=== PATIENT | male | born 1975 | race African-American/Black ===

== ENCOUNTER 2017-04-29 05:43 | Emergency (ER) | payer SELFPAY ==
[~2017-04-29] VITALS: Ht 180.3 cm; Wt 117.2 kg
[2017-04-29 06:48] LABS: HEMATOCRIT 44.3 % (38.0-50.0); HEMOGLOBIN 14.5 G/DL (12.5-16.6); MCHC 32.7 G/DL (30.0-36.0); MCV 82.3 FL (86-99); PLATELET COUNT 161 K/uL (156-360); RBC DIS.WIDTH-SD 41.4 % (39-53); RED BLOOD COUNT 5.38 M/uL (4.00-5.50); WHITE BLOOD COUNT 8.3 K/uL (4.1-10.2)
[2017-04-29 07:21] LABS: CHLORIDE 104 MEQ/L (99-109); POTASSIUM 3.7 MEQ/L (3.7-5.4); SODIUM 139 MEQ/L (136-147)
[2017-04-29 07:26] LABS: CREATININE 0.9 MG/DL (0.6-1.3); GFR ESTIMATE (CALCULATED) > 59 mL/min/ (58.99-99999); GLUCOSE 114 mg/dL (70-99); UREA NITROGEN (BUN) 10 mg/dL (9-23)
[2017-04-29] MEDS ORDERED: TAMIFLU75 MG PO (11:37)
[2017-04-29 12:42] VITALS: BP 122/81
== END 2017-04-29 12:43 | disposition home or self-care (01) ==
LOC: EME 05:43
PROVIDERS: Emergency Medicine
DX: J10.1 Influenza due to other identified influenza virus with other respiratory manifestations (principal)
CPT/HCPCS: 71046; 80048; 85027; 87502; 99281; 99283